=== PATIENT | female | born 1945 | race Two or more races ===

== ENCOUNTER 2020-01-30 12:20 | Day surgery (SDC) | payer OTHER | END 2020-01-30 16:35 | disposition home or self-care (01) | LOC: AMB-ENDOS 12:20 | PROVIDERS: ATTEND Colon & Rectal Surgery | DX: K62.89 Other specified diseases of anus and rectum (principal); K64.1 Second degree hemorrhoids; Z20.828 Contact with and (suspected) exposure to other viral communicable diseases ==

== ENCOUNTER 2023-05-21 08:00 | Outpatient (CLI) | payer OTHER ==
[2023-05-21 09:15] LABS: HEMATOCRIT 28.2 % (36.0-45.00); MEAN CORPUSCULAR HGB CONC 30.3 g/dl (32.0-36.0); PLATELET COUNT 207 K/uL (150-450); RED BLOOD COUNT 3.28 M/uL (4.00-6.00); RED CELL DISTRIBUTION WIDTH 14.9 % (11.5-14.5)
[2023-05-21 09:15] LABS: PH,URINE 5.5 (5.0-8.0); URINE APPEARANCE Clear; URINE BILIRRUBIN Negative (NEGATIVE); URINE BLOOD Small; URINE COLOR Yellow; URINE GLUCOSE Negative (NEGATIVE); URINE LEUKOCYTE Large; URINE NITRATE Negative; URINE PROTEIN Negative (NEGATIVE); URINE UROBILINOGEN 0.2 E.U./dl
[2023-05-21 09:18] LABS: HEMOGLOBIN 8.6 g/dL (12.0-15.00); MEAN CORPUSCULAR HEMOGLOBIN 26.2 pg (27.00-32.0)
[2023-05-21 09:20] LABS: URINE BACTERIA 288.4 uL (0.0-1933); URINE RBC 96.5 uL (0.0-20.8); URINE WBC 1143.1 uL (0.0-23.2)
[2023-05-21 09:27] LABS: URINE EPITHELIAL CELLS 0.7 uL (0.0-38.8)
[2023-05-21 09:40] LABS: CALCIUM 9.6 mg/dL (8.5-10.1); CREATININE SERUM 1.1 mg/dL (0.55-1.02); GFR 47.91; POTASSIUM 4.81 mEq/L (3.5-5.1)
[2023-05-21] MEDS ORDERED: CARDURA XL4 MG PO (09:58)
[2023-05-21] MEDS ORDERED: GLUMETZA500 MG PO (09:59)
[2023-05-21] MEDS ORDERED: SINVASTATIN 20MG (09:59)
[2023-05-21] MEDS ORDERED: AVAPRO150 MG PO (09:59)
[2023-05-21] MEDS ORDERED: ALENDRONATE SOD70 MG PO (10:00)
[2023-05-21] MEDS ORDERED: VITAMIN D3 (10:00)
[2023-05-21] MEDS ORDERED: FEOSOL325 MG (10:01)
[2023-05-21] MEDS ORDERED: PANTOPRAZOLE SO40 M2 PO (10:01)
[2023-05-21] MEDS ORDERED: ACID CONTROLLER20 MG PO (10:01)
[2023-05-21 10:12] LABS: INR 1.03; PARTIAL THROMBOPLASTIN TIME 26.2 SECONDS (22.0-34.0)
[2023-05-21 10:13] LABS: PROTHROMBIN TIME 10.8 SECONDS (9.0-11.5)
== END 2023-05-21 08:01 | disposition home or self-care (01) ==
LOC: RAD 08:00 → CIR LITO 06-01 07:00 → EDSTATUS 06-01 07:15 → CIR.AMB 06-01 07:15 → CIR LITO 06-01 07:15
PROVIDERS: ATTEND Urology
DX: N20.0 Calculus of kidney (principal)

== ENCOUNTER 2023-05-30 11:46 | Outpatient (CLI) | payer OTHER ==
[~2023-05-30 11:46] MED LIST: ACID CONTROLLER20 MG PO; ALENDRONATE SOD70 MG PO; AVAPRO150 MG PO; CARDURA XL4 MG PO; FEOSOL325 MG; GLUMETZA500 MG PO; PANTOPRAZOLE SO40 M2 PO; SINVASTATIN 20MG; VITAMIN D3
[2023-05-30 12:24] LABS: HEMATOCRIT 28.1 % (36.0-45.00); MEAN CORPUSCULAR HEMOGLOBIN 26.6 pg (27.00-32.0); MEAN CORPUSCULAR HGB CONC 30.7 g/dl (32.0-36.0); PLATELET COUNT 213 K/uL (150-450); RED BLOOD COUNT 3.23 M/uL (4.00-6.00); RED CELL DISTRIBUTION WIDTH 16.3 % (11.5-14.5)
[2023-05-30 12:25] LABS: HEMOGLOBIN 8.6 g/dL (12.0-15.00)
== END 2023-05-30 11:48 | disposition home or self-care (01) ==
LOC: LAB 11:46
PROVIDERS: ATTEND Internal Medicine
DX: D64.9 Anemia, unspecified (principal)